=== PATIENT | female | born 1980 | race Two or more races ===

== ENCOUNTER 2021-09-29 19:34 | Emergency (ER) | payer MEDICAID ==
[~2021-09-29] VITALS: Ht 170.2 cm; Wt 74.4 kg
[2021-09-29 19:58] VITALS: BP 176/104
== END 2021-09-30 03:35 | disposition left against medical advice (07) ==
LOC: ER 19:35
DX: I10 Essential (primary) hypertension (principal); R07.89 Other chest pain; Z98.890 Other specified postprocedural states; Z53.29 Procedure and treatment not carried out because of patient's decision for other reasons
CPT/HCPCS: 93005